=== PATIENT | female | born 1965 | race Caucasian/White ===

== ENCOUNTER 2021-04-08 10:30 | Observation (INO) ==
--- NOTE | 2021-03-22 15:04 | PAT Medication Instructions ---
Medication Instructions Date of Service March 22, 2021 Home Medications atorvastatin 20 mg tablet 20 mg PO QAM cholecalciferol (vitamin D3) 25 mcg (1,000 unit) capsule 25 mcg PO DAILY Collagen Protein Powder 1 dose PO DAILY jodtjjetlrbv-twsebfcj-qbxtju [Centrum Silver] 1 tab PO DAILY STOP taking 2 weeks before surgery If surgery is within 2 weeks, stop taking as soon as possible. Collagen Protein Powder 1 dose PO DAILY mpcquvdsoxlq-jjyntxwp-qaornj [Centrum Silver] 1 tab PO DAILY DO NOT take the morning of surgery cholecalciferol (vitamin D3) 25 mcg (1,000 unit) capsule 25 mcg PO DAILY Take morning of surgery With a small sip of water, OTHERWISE NOTHING TO EAT OR DRINK AFTER MIDNIGHT: atorvastatin 20 mg tablet 20 mg PO QAM Other Notes If you have any questions please call us at [phone] or [phone] or [phone] or [phone]
--- NOTE | 2021-03-26 09:09 | Anesthesiology Consultation ---
Date of Service March 26, 2021 Assessment & Plan (1) Encounter for pre-operative examination: COVID Status: As of 03/26 assessment, patient denies travel to endemic area, known exposure/sick contacts, or symptoms of COVID19. Patient instructed that they and their household members must follow strict social distancing guidelines, wear a mask in public and avoid travel/events/gatherings for 14 days prior to surgery. Preoperative COVID19 testing to be completed prior to surgery per surgeon's arrangements (04/01 per pt). Patient made aware to self-isolate as much as possible between COVID testing and surgery. Pt is NOT vaccinated. Abnormal CXR with possible R rib fx -- clarified with patient via telephone, she had a mechanical fall last year and did injure a rib on the R side. She was unsure if it was fully fractured. Pain has resolved. Chart Review Chart Review: Acceptable Risk for Surgery and Patient seen in Pre Admission Testing Teaching & Discussion Instructed NPO after midnight before surgery, except medications with 15 cc of water. Medication instructions provided according to the PAT guidelines. History Surgery Operation Date: 04/08/21 13:00 Proposed Procedures p Left Total Knee Arthroplasty - Antoni Hughes MD Height/Weight Height: 5 ft 4 in Weight: 59.7 kg Allergies Allergy/AdvReac Type Severity Reaction Status Date / Time No Known Allergies Allergy Verified 03/22/21 09:11 Medications Home Medications Medication Instructions Recorded Confirmed Last Taken atorvastatin 20 mg tablet 20 mg PO QAM 03/21/21 03/22/21 Unknown cholecalciferol (vitamin D3) 25 25 mcg PO DAILY 03/21/21 03/22/21 Unknown mcg (1,000 unit) capsule Collagen Protein Powder 1 dose PO DAILY 03/22/21 03/22/21 Unknown aqzoavqjprih-bkunoyww-rieecp 1 tab PO DAILY 03/22/21 03/22/21 Unknown [Centrum Silver] Past Medical History Medical History Borderline high blood pressure Diverticulosis DX WITH MOST RECENT COLONOSCOPY FEBRUARY 2021 Hypercholesteremia Osteoarthritis Exercise / Class Metabolic Activity II 4-5 Yardwork/Stairs/Walk up hill Past Family History Family History Brother Family history of diabetes mellitus Grandmother Family history of diabetes mellitus Grandfather Family history of diabetes mellitus Past Surgical History Surgical History History of History of colonoscopy Past Anesthesia History No Hx of Anesthesia Complications and No Family Hx of Anesthesia Complications History of PONV No Hx of PONV and No Hx of Motion Sickness Social History Smoking Status: Current every day smoker tobacco type: cigarettes Smoking cigarettes per day: LESS THAN 10 PER DAY/ADVISED NPO Do You Dip or Chew Tobacco: No Hx Alcohol Use: Yes Alcohol type: hard liquor Alcohol Intake Frequency Comment: VODKA LESS THAN 3 A DAY, AFTER WORK substance use type: does not use Review of Systems Pt denies any recent chest pain, shortness of breath, palpitations, cough, fever, URI, or uncontrolled acid reflux. Physical Exam Vital Signs BP: 151/95 (pt is anxious, PCP has been monitoring and not planning to initiate BP meds as BP is WNL most of the time, pt monitors 2x per week at home) P: 74bpm SPO2: 96% RA T: 98.4 F R: 16 ENMT Mouth: + dental bridge (upper R side) and + dental restorations; no chipped teeth and no loose teeth Thyromental Distance: > or= 3.5 Finger Breadths Mallampati Class: II Neck normal visual inspection; neck extension not limited Respiratory normal respiratory effort, lungs clear to auscultation Cardiovascular RRR, no murmur, no edema Vessels: no carotid bruit Testing Laboratory Results 03/26/21 09:20 03/26/21 09:20 PT 9.4 Seconds (9.0-12.0) 03/26/21 09:20 INR 0.9 (0.9-1.1) 03/26/21 09:20 APTT 24.8 Seconds (21.0-31.0) 03/26/21 09:20 Blood Type A Negative 03/26/21 08:32 Antibody Screen NEGATIVE 03/26/21 08:32 Electrocardiogram Date: 03/26/21 Findings: + NSR @ (70bpm) Chest X-Ray Date: 03/26/21 FINDINGS: No pneumothorax or pleural effusion seen. No infiltrates or consolidative lesions demonstrated. Mild reticular prominence of pulmonary interstitium is seen at the left lower lung. Cardiomediastinal silhouette is within normal limits in size.[ No pulmonary vascular congestion demonstrated. There is questionable lesion within the posterior lateral aspect of the right ninth rib which might represent sequela from fracture versus other etiology. IMPRESSION: 1. No acute pulmonary process. 2. Questionable lesion within posterior lateral aspect of the right ninth rib which might represent fracture versus other etiology. Please correlate above- mentioned findings was prior history and point tenderness. ACT 112: Positive. There are findings on this exam that require communication between the performing entity and the patient following Patient Test Result Information Act ([place] Act 112) guidelines.
--- NOTE | 2021-03-26 10:23 | XRay Report ---
XR chest Pre-admission PA/Lat CLINICAL HISTORY: Preop COMPARISON STUDY: No previous studies for comparison. FINDINGS: No pneumothorax or pleural effusion seen. No infiltrates or consolidative lesions demonstrated. Mild reticular prominence of pulmonary interstitium is seen at the left lower lung. Cardiomediastinal silhouette is within normal limits in size.[ No pulmonary vascular congestion demonstrated. There is questionable lesion within the posterior lateral aspect of the right ninth rib which might r epresent sequela from fracture versus other etiology. IMPRESSION: 1. No acute pulmonary process. 2. Questionable lesion within posterior lateral aspect of the right ninth rib which might represent fracture versus other etiology. Please correlate above-mentioned findings was prior history and point tenderness. ACT 112: Positive. There are findings on this exam that require communication between the performing entity and the patient following Patient Test Result Information Act [place] Act 112) guidelines. Electronically signed by: Evelia Sales DO 03/26/2021 10:21 AM
[2021-03-26 10:24] LABS: Basophils # (auto) 0.05 K/uL (0-0.2); Basophils % (auto) 0.8 %; Eosinophils % (auto) 1.6 %; Hematocrit (blood only) 42.3 % (37-47); Hemoglobin 14.5 g/dL (12.0-16.0); Immature Granulocytes # (auto) 0.01 K/uL (0.00-0.02); Immature Granulocytes % (auto) 0.2 %; Lymphocytes # (auto) 1.47 K/uL (1.2-3.4); Lymphocytes % (auto) 23.3 %; Mean Corpuscular Hemoglobin 33.3 pg (25-34); Mean Corpuscular Hgb Conc 34.3 g/dL (32-36); Mean Platelet Volume 10.7 fL (7.4-10.4); Monocytes # (auto) 0.54 K/uL (0.11-0.59); Monocytes % (auto) 8.5 %; Neutrophils # (auto) 4.15 K/uL (1.4-6.5); Neutrophils % (auto) 65.6 %; Platelet Count 242 K/uL (130-400); RDW Coefficient of Variation 12.3 % (11.5-14.5); RDW Standard Deviation 43.9 fL (36.4-46.3); Red Blood Count 4.36 M/uL (4.2-5.4); White Blood Count 6.32 K/uL (4.8-10.8)
[2021-03-26 10:33] LABS: INR 0.9 (0.9-1.1); Partial Thromboplastin Ratio 0.9; Partial Thromboplastin Time 24.8 Seconds (21.0-31.0); Prothrombin Time 9.4 Seconds (9.0-12.0)
[2021-03-26 12:15] LABS: BUN Creatinine Ratio 27.3 (10-20); Calcium 9.3 mg/dl (8.5-10.1); Creatinine Clr Calc Pharmacy 102.3 ml/min; Est GFR (Non-African American) 106.1; Potassium 4.3 mmol/L (3.5-5.1)
--- NOTE | 2021-03-27 06:36 | Electrocardiogram Report ---
Test Reason : Blood Pressure : / mmHG Vent. Rate : 070 BPM Atrial Rate : 070 BPM P-R Int : 132 ms QRS Dur : 088 ms QT Int : 392 ms P-R-T Axes : 029 068 054 degrees QTc Int : 423 ms Normal sinus rhythm Normal ECG No previous ECGs available Confirmed by Dwaine Deshpande ([id number]) on 03/27/2021 6:35:58 AM Referred By: Antoni Hughes Confirmed By:Dwaine Deshpande
[~2021-04-08 10:30] MED LIST: ACETAMINOPHEN 500 MG TAB PO SCH; BUPIVACAINE 0.5 % 5 MG/1 ML PF 10ML VIAL ONE; BUPIVACAINE LIPOSOME/PF 266 MG, BUPIVACAINE/EPINEPHRINE 50 ML, SODIUM CHLORIDE 0.9% 30 ... INFIL SCH; FAMOTIDINE 20 MG TAB PO SCH; GABAPENTIN 600 MG DOSE PO SCH; LR 500ML BOLUS, THEN 15ML/HR IV SCH; LR 60ML/HR IV SCH; ROPIVACAINE 0.5% 5 MG/ML 30 ML VIAL ONE; Scopolamine 1 MG TDSY TD SCH; TRANEXAMIC ACID 1,000 MG **IV Intra-op IV SCH; ceFAZolin 2000MG 2,000 MG/15 ML SYR IV SCH; fentaNYL citrate 100 MCG/2 ML VIAL ONE
--- NOTE | 2021-04-08 11:23 | History & Physical Bridge Note ---
Date of Service April 08, 2021 History & Physical Bridge Note I have examined the patient, reviewed the History & Physical and in the interval since the performance of the History & Physical I have noted the following changes of clinical significance: no changes noted
[2021-04-08] MEDS ORDERED: MIDAZOLAM HCL 1 MG/ML 2ML VIAL ONE ×2 (12:30→13:42)
[2021-04-08] MEDS ORDERED: KETOROLAC 30 MG/ML VIAL IV PRN (12:54)
[2021-04-08] MEDS ORDERED: HYDROmorphone INJ 1 MG/ML SYRINGE IV PRN (12:54)
[2021-04-08] MEDS ORDERED: ATROPINE SULFATE 0.1 MG/ML 10ML SYR IV PRN (12:54)
[2021-04-08] MEDS ORDERED: ePHEDrine sulfate 50 MG/ML AMP IV PRN (12:54)
[2021-04-08] MEDS ORDERED: ONDANSETRON INJ 2 MG/ML 2 ML VIAL IV PRN ×2 (12:54→16:16)
[2021-04-08] MEDS ORDERED: SODIUM CHLORIDE 0.9% PF 50 ML VIAL ONE (13:05)
[2021-04-08] MEDS ORDERED: BUPIVACAINE 0.25% 30 ML VIAL ONE (13:06)
[2021-04-08] MEDS ORDERED: EPINEPHrine INJ 1 MG/ML AMP ONE (13:06)
[2021-04-08] MEDS ORDERED: BUPIVACAINE LIPOSOME 1.3% 266 MG/20 ML VIAL ONE (13:06)
[2021-04-08] MEDS ORDERED: PROPOFOL IV EMULSION 10 MG/ML 20 ML VIAL IV ONE ×2 (13:43→14:20)
[2021-04-08] MEDS ORDERED: LIDOCAINE 2% 2 ML VIAL/AMP(20MG/ML) INFIL ONE (13:43)
--- NOTE | 2021-04-08 15:20 | Operative Report ---
Post Operative Report Pre & Post Diagnosis Operation Date: 04/08/21 13:00 Pre-Op Diagnosis: Left Knee Advanced Degenerative Joint Disease Post-Op Diagnosis: Left Knee Advanced Degenerative Joint Disease I identified the patient and participated in the time-out.: Yes Procedure Operation Date: 04/08/21 13:00 Actual Procedures p Left Total Knee Arthroplasty(Left) - Antoni Hughes MD Surgeon Antoni Hughes MD Creative Art Director MURIEL Bowling Estimated Blood Loss 50 Findings Consistent with Post-Op Diagnosis Operative findings revealed advanced left knee lateral compartment DJD. She had extensive grade 4 rjcq-jq-jknq disease of the lateral compartment with eburnation. The medial and patellofemoral compartments were well preserved. She did have a fixed valgus deformity to her knee in about 10 degree flexion contracture. Fluids 1400 cc Specimens Left knee sent for pathology. Anesthesia Type Spinal MAC Complications none Disposition Accompanied Patient To Recovery: No Disposition: Recovery Room Indications Patient is a 55-year-old female said a long history of gradual progressive increasing left knee pain and discomfort which became less responsive conservative care. X-rays show advanced lateral compartment DJD. She elected proceed with surgical management. Description of Procedure Operative implants consist of: 1. Biomet Vanguard size 62.5 left posterior stabilized femoral component. 2. Biomet size 71 tibial tray. 3. 10 mm posterior stabilized polyethylene insert. 4. 28 x 8 all polypatella. The patient was taken to the operating, identified, and placed on the operating table supine position but all contractors were properly padded. IV antibiotics 5 by anesthesia team. Spinal anesthetic and abductor canal block had provided holding area. Terrell catheter was placed in sterile fashion. Left thigh turn was then placed in the left lower extremities and prepped draped in usual sterile fashion. Left leg was elevated exsanguinated with use of an Esmarch and tourniquet placed at 300 mmHg. An anterior approach left knee was then performed through longitu dinal incision centered over the patella. Sharp dissection was carried through subcutaneous this down the extensor mechanism. Medial parapatellar arthrotomy incision was made. Some subperiosteal dissection was carried out medially. The fat pad was resected from each patella tendon. The patella subluxated laterally and the knee was flexed. The osteophyte taken off the distal femur. The ACL a nd PCL were then released from distal femur and the tibia subluxated anteriorly. The external tibial alignment jig was then placed in the interface the tibia and adjusted 12 mm medially. Proximal tibial cut was made remove about 3 to 4 mm of bone from the medial side. The tibia was then sized to a size 71. We did try to maximize coverage particular on the medial side due to her osteopenia. Attention drawn the femur. The distal femur was entered with a sharp drop with intramedullary canal was suction. A left 5 degree valgus cutting guide was placed. The distal femoral cutting block was pinned in place. Distal femoral cut was made to take an additional 3 mm of bone off the distal femur. The femur was then sized to a size 62.5. The AP cutting block was pinned parallel to the epicondylar axis which was 9 degrees of external rotation. The anterior cut, anterior chamfer, posterior cut, posterior chamfer cuts were made. The box cutting guide was placed in just slight lateral and the box cut was made. The knee was flexed. The remnants of the medial lateral menisci were excised. The osteophyte taken off the posterior aspect the femur. A trial femoral component was placed. The tibial tray was pinned in maximum external rotation and the drill and stem punch used to create defect in proximal tibia for the tibial tray. Knee was then trialed and the 10 mm insert fit most appropriately. Attention drawn the patella. The patella was cleaned of all soft tissue. Patella thickness measured 21 mm in thickness was cut down to 13. Size a size 28 patella. The lug holes were drilled for the 28 patella. The lateral osteophyte was removed. Patella button was placed. Knee was taken through range of motion and the patella tracked nicely with no thumbs test. Attention turned to placing permanent components. For all trial components were removed. Bone plug was placed in the distal femur limit blood loss. Double batch Palacos G cement was mixed. A Biomet Vanguard size 62.5 left posterior stabilized femoral component, size 71 tibial tray, 10 mm posterior stabilized polyethylene insert, and a 28 x 8 all polypatella then cemented in place. Knee was brought out into full extension total cement hardened. A final cement check was then performed. Pericapsular tissues were injected with total of 100 cc of combination of 20 cc of Exparel, 30 cc normal saline, 50 cc of quarter percent Marcaine with epinephrine. Patient did receive 1 g tranexamic acid. The turn was then let down for final turn time of 60 minutes. Hemostasis assured use electrocautery. Extensor mechanism closed with combination 1 PDS suture in an #1 Vicryl suture in a gawuga-jp-porvd fashion. Extensor mechanism checked found to be intact with subcutaneous tissue then closed with 2 Dexon suture in a buried interrupted fashion skin was closed skin tommy. Leg was then cleaned dried a sterile dressing was Xeroform, 4 x 4's, sterile cast padding, Rene bandage were applied. Patient then transferred to the recovery room in stable condition. Patient tolerated procedure well no complications. Red Bowling, my physician marketing assistant retail division, was present for the entire procedure. His assistance was essential and required for appropriate patient positioning, prepping and draping, surgical exposure, performing the technical details of the operation, placement the implants, closure of the wound, and placement of the sterile bandage. I attest to the content of the Intraoperative Record and any orders documented therein. Any exceptions are noted below.
--- NOTE | 2021-04-08 15:42 | Anesthesiology Progress Note ---
Date of Service April 08, 2021 Anesthesia Post Procedure Vital Signs Vital Signs: Temp Pulse Pulse Resp BP BP Pulse Ox 04/08/21 15:30 60 14 126/80 94 04/08/21 15:20 59 L 14 131/79 97 04/08/21 15:17 36.5 C 71 17 108/83 99 04/08/21 11:59 72 18 162/99 H 98 04/08/21 11:20 37.2 C 72 18 151/101 H 98 Transfer of Care Handoff Completed per policy Notes Mental Status: alert / awake / arousable Patient Amnestic to Procedure: Yes Nausea / Vomiting: adequately controlled Pain: adequately controlled Airway Patency, RR, SpO2: stable & adequate BP & HR: stable & adequate Hydration State: stable & adequate Neuraxial Anesthesia: was administered and sensory block is resolving Anesthetic Complications: no major complications apparent and Pt Satisfied with anesthetic care
--- NOTE | 2021-04-08 15:45 | XRay Report ---
LEFT KNEE 2 VIEWS History: Left total knee arthroplasty. Degenerative arthritis. Postop. FINDINGS: The patient is status post a left total knee arthroplasty. The hardware is intact. No fract ure or dislocation. Skin tommy are in place. IMPRESSION: Left total knee arthroplasty. No evidence for hardware complication. ACT 112: Negative or not required by law. Electronically signed by: Delonte Shay M.D. 04/08/2021 3:43 PM
[2021-04-08] MEDS ORDERED: NALOXONE HCL 0.4 MG/1 ML VIAL/CARP IV PRN (16:16)
[2021-04-08] MEDS ORDERED: ALUMINUM/MAGNESIUM SUSP 30 ML UDC PO PRN (16:16)
[2021-04-08] MEDS ORDERED: diphenhydrAMINE Capsule 25 MG CAP PO PRN (16:16)
[2021-04-08] MEDS ORDERED: MAGNESIUM HYDROXIDE SUSP 30 ML UDC PO PRN (16:16)
[2021-04-08] MEDS ORDERED: METOCLOPRAMIDE HCL INJ 5 MG/ML 2 ML VIAL IV PRN (16:16)
[2021-04-08] MEDS ORDERED: bisacodyL 10 MG SUPP PR PRN (16:16)
[2021-04-08] MEDS ORDERED: HYDROmorphone INJ 0.5 MG/0.5 ML SYR IV PRN (16:16)
[2021-04-08] MEDS: Scopolamine CHECK PATCH PLACEMENT SCH ×2 (17:13→23:46)
[2021-04-08] MEDS: SODIUM CHLORIDE 0.9% 1000ML 1,000 ML IV SCH (17:13)
[2021-04-08] MEDS: ASCORBIC ACID 500 MG TAB PO SCH (17:22)
[2021-04-08] MEDS: KETOROLAC 30 MG/ML VIAL IV SCH ×2 (17:22→23:46)
[2021-04-08] MEDS: oxyCODONE HCL IR 5 MG TAB (IMMEDIATE RELEASE) PO PRN (20:27)
[2021-04-08] MEDS: TAPENTADOL HCL ER 50 MG TABCR PO SCH (20:27)
[2021-04-08] MEDS: DOCUSATE SODIUM 100 MG CAP PO SCH (20:28)
[2021-04-08] MEDS: ASPIRIN 81 MG ECTAB PO SCH (20:28)
[2021-04-08] MEDS ORDERED: SENNA 8.6 MG TAB PO SCH (21:00)
[2021-04-08] MEDS ORDERED: TRANEXAMIC ACID / 0.7% NACL 1,000 MG/100 ML BAG IV SCH (21:11)
[2021-04-08] MEDS: ceFAZolin 1000MG 1,000 MG/7.5 ML SYR IV SCH (21:39)
[2021-04-08] MEDS: ACETAMINOPHEN 500 MG TAB PO SCH (21:39)
[2021-04-09] MEDS: SODIUM CHLORIDE 0.9% 1000ML 1,000 ML IV SCH (03:10)
[2021-04-09] MEDS: ceFAZolin 1000MG 1,000 MG/7.5 ML SYR IV SCH (05:21)
[2021-04-09] MEDS: ACETAMINOPHEN 500 MG TAB PO SCH (05:21)
[2021-04-09] MEDS: KETOROLAC 30 MG/ML VIAL IV SCH ×2 (05:22→11:50)
[2021-04-09 06:52] LABS: Hematocrit (blood only) 32.1 % (37-47); Hemoglobin 11.1 g/dL (12.0-16.0); Mean Corpuscular Hgb Conc 34.6 g/dL (32-36); Mean Corpuscular Volume 95.5 fL (80-100); Mean Platelet Volume 9.6 fL (7.4-10.4); Platelet Count 241 K/uL (130-400); RDW Coefficient of Variation 12.5 % (11.5-14.5); Red Blood Count 3.36 M/uL (4.2-5.4); White Blood Count 6.55 K/uL (4.8-10.8)
[2021-04-09 07:27] LABS: BUN Creatinine Ratio 13.2 (10-20); Calcium 8.9 mg/dl (8.5-10.1); Est GFR (African American) 127.1 ml/min; Est GFR (Non-African American) 109.7 ml/min; Potassium 3.8 mmol/L (3.5-5.1)
[2021-04-09] MEDS ORDERED: dexAMETHasone 10 MG in SYRINGE 0 ML IV SCH (08:00)
[2021-04-09] MEDS: oxyCODONE HCL IR 5 MG TAB (IMMEDIATE RELEASE) PO PRN (08:02)
[2021-04-09] MEDS: TAPENTADOL HCL ER 50 MG TABCR PO SCH (08:02)
[2021-04-09] MEDS: Scopolamine CHECK PATCH PLACEMENT SCH (08:03)
[2021-04-09] MEDS: ASPIRIN 81 MG ECTAB PO SCH (08:03)
[2021-04-09] MEDS: DOCUSATE SODIUM 100 MG CAP PO SCH (08:03)
[2021-04-09] MEDS: ASCORBIC ACID 500 MG TAB PO SCH (08:03)
[2021-04-09] MEDS ORDERED: ATORVASTATIN 20 MG TAB PO SCH (09:00)
[2021-04-09] MEDS ORDERED: COLLAGEN PROTEIN PO SCH (09:00)
[2021-04-09] MEDS ORDERED: NICOTINE 7 MG/24 HR TDSY TD SCH (09:00)
[2021-04-09] MEDS ORDERED: NON-FORMULARY MEDICATION (Multivitamin-Minerals-Lutein Tablet) PO SCH (09:00)
[2021-04-09] MEDS ORDERED: MULTIVITAMIN TAB PO SCH (09:00)
[2021-04-09] MEDS ORDERED: CHOLECALCIFEROL 1,000 UNITS 25 MCG TAB PO SCH (09:00)
--- NOTE | 2021-04-09 15:56 | Progress Notes ---
DATE: 04/09/2021 SUBJECTIVE: A 55-year-old white female postop day 1 from a left knee replacement. She has done quite well. Pain is controlled. Therapy went well. No chest pain or shortness of breath. Not feeling dizzy or lightheaded. OBJECTIVE: VITAL SIGNS: Temperature 36.7. Vital signs stable. GENERAL: Shows a pleasant, middle-aged female. She is sitting up in bed, looks pretty comfortable. LUNGS: Clear to auscultation. HEART: Has a regular rate and rhythm. ABDOMEN: Soft, nontender, nondistended. EXTREMITIES: Grossly neurovascularly intact except as follows. Examination of the left leg reveals the dressing to be clean, dry and intact. She can dorsiflex and plantarflex her foot appropriately. She is neurologically intact. LABORATORY DATA: Hemoglobin 11.1. Hematocrit 32.1. Electrolytes are stable. ASSESSMENT: A 55-year-old white female postop day 1 from left knee replacement, doing pretty well. Pain is controlled. She is neurologically intact. PLAN: 1. DVT prophylaxis including thigh-high TEDs, SCDs, and aspirin twice a day. 2. PT/OT. Weight bear as tolerated. Left total knee protocol. 3. Pain control, doing okay with current pain regimen. 4. Disposition: Plan to discharge to home with some home health later today.
--- NOTE | 2021-04-13 07:26 | Discharge Summary ---
Date of Service April 13, 2021 Discharge Data Procedures Performed Operation Date: 04/08/21 13:00 Actual Procedures p Left Total Knee Arthroplasty(Left) - Antoni Hughes MD Hospital Course (1) Status post total left knee replacement: This patient is a 55 year old admitted on 04/08/21 and underwent total knee arthroplasty. She tolerated the procedure well and there were no complications. Transferred to the PACU post op and later to the orthopedic floor for further care. She was given ancef for antibiotic prophylaxis. She was also given RENZO stockings, SCDs, and aspirin for DVT prophylaxis. Hemoglobin, hematocrit, and vital signs were monitored during her hospital stay and remained stable. Did not require any blood transfusions. There were no complications during her hospital stay. By post op day #1 the patient was tolerating a regular diet, pain was reasonably controlled with oral pain medicine, and she was participating in physical therapy. On post op day #1 the patient was discharged home and set up with home health care. She was given printed discharge instructions including prescriptions for extra strength tylenol, aspirin, and oxycodone. Continue physi cecille therapy, weight bearing as tolerated. Continue RENZO stockings. Follow up approximately 2 weeks post op or sooner if there are problems or concerns. Coding Level of Care Code None Diagnoses Status post total left knee replacement Z96.652
== END 2021-04-09 13:27 | disposition home health service (06) ==
LOC: 3E 10:30 → ASU 10:30